=== PATIENT | female | born 1980 | race Two or more races ===

== ENCOUNTER 2020-06-11 09:43 | Outpatient (CLI) | payer OTHER | END 2020-06-11 10:26 | disposition home or self-care (01) | LOC: RX STUDY 09:43 → RAD 09:43 → RX STUDY 10:26 | PROVIDERS: ATTEND Obstetrics & Gynecology Reproductive Endocrinology | DX: N93.0 Postcoital and contact bleeding (principal) ==

== ENCOUNTER 2022-10-28 19:45 | Inpatient (IN) | payer OTHER ==
[~2022-10-28] VITALS: Ht 177.8 cm; Wt 66.2 kg
[2022-10-28] MEDS ORDERED: PRENATAL TABLE1 EAC1 PO (22:13)
== END 2022-10-31 09:54 | disposition home or self-care (01) | DRG 833 ==
LOC: NST 19:45 → LDR 21:56 → OB/GYN 10-30 15:20
PROVIDERS: ADMIT Obstetrics & Gynecology Maternal & Fetal Medicine; ATTEND Obstetrics & Gynecology Maternal & Fetal Medicine
PROC: 4A1HXCZ Monitoring of Products of Conception, Cardiac Rate, External Approach (ICD-10-PCS; principal; 2022-10-28)
PROC: BY4CZZZ Ultrasonography of Second Trimester, Single Fetus (ICD-10-PCS; 2022-10-29)
PROC: BU4CZZZ Ultrasonography of Uterus and Ovaries (ICD-10-PCS; 2022-10-29)
DX: O47.02 False labor before 37 completed weeks of gestation, second trimester (principal); O09.812 Supervision of pregnancy resulting from assisted reproductive technology, second trimester; O26.842 Uterine size-date discrepancy, second trimester; Z20.822 Contact with and (suspected) exposure to COVID-19; Z3A.24 24 weeks gestation of pregnancy

== ENCOUNTER 2022-11-07 09:54 | Outpatient (CLI) | payer OTHER ==
[~2022-11-07 09:54] MED LIST: PRENATAL TABLE1 EAC1 PO
== END 2022-11-07 10:53 | disposition home or self-care (01) ==
LOC: NST 09:54
PROVIDERS: ATTEND Obstetrics & Gynecology Maternal & Fetal Medicine
DX: Z34.82 Encounter for supervision of other normal pregnancy, second trimester (principal)

== ENCOUNTER 2022-12-23 13:04 | Outpatient (CLI) | payer OTHER | END 2022-12-23 14:52 | disposition home or self-care (01) | LOC: NST 13:04 | PROVIDERS: ATTEND Obstetrics & Gynecology Maternal & Fetal Medicine | DX: Z34.83 Encounter for supervision of other normal pregnancy, third trimester (principal) ==

== ENCOUNTER 2023-01-06 16:12 | Outpatient (CLI) | payer OTHER | END 2023-01-06 17:09 | disposition home or self-care (01) | LOC: NST 16:12 | PROVIDERS: ATTEND Obstetrics & Gynecology Maternal & Fetal Medicine | DX: Z34.83 Encounter for supervision of other normal pregnancy, third trimester (principal) ==

== ENCOUNTER 2023-02-09 14:00 | Inpatient (IN) | payer OTHER ==
[~2023-02-09] VITALS: Ht 177.8 cm; Wt 69.4 kg
== END 2023-02-20 13:43 | disposition home or self-care (01) | DRG 807 ==
LOC: LDR 02-17 14:00 → OB/GYN 02-17 17:11
PROVIDERS: ADMIT Obstetrics & Gynecology; ATTEND Obstetrics & Gynecology
PROC: 3E0P7VZ Introduction of Hormone into Female Reproductive, Via Natural or Artificial Opening (ICD-10-PCS; 2023-02-17)
PROC: 4A1HXCZ Monitoring of Products of Conception, Cardiac Rate, External Approach (ICD-10-PCS; 2023-02-17)
PROC: 10E0XZZ Delivery of Products of Conception, External Approach (ICD-10-PCS; principal; 2023-02-18)
PROC: 0KQM0ZZ Repair Perineum Muscle, Open Approach (ICD-10-PCS; 2023-02-18)
PROC: 3E033VJ Introduction of Other Hormone into Peripheral Vein, Percutaneous Approach (ICD-10-PCS; 2023-02-18)
DX: O70.1 Second degree perineal laceration during delivery (principal); Z37.0 Single live birth; Z20.822 Contact with and (suspected) exposure to COVID-19; Z3A.40 40 weeks gestation of pregnancy

== ENCOUNTER 2023-02-09 17:00 | Outpatient (CLI) | payer OTHER | END 2023-02-09 18:13 | disposition home or self-care (01) | LOC: NST 17:00 | PROVIDERS: ATTEND Obstetrics & Gynecology Gynecology | DX: Z34.83 Encounter for supervision of other normal pregnancy, third trimester (principal) ==

== ENCOUNTER 2023-02-16 13:22 | Outpatient (CLI) | payer OTHER | END 2023-02-16 15:22 | disposition home or self-care (01) | LOC: NST 13:22 | PROVIDERS: ATTEND Obstetrics & Gynecology | DX: Z34.83 Encounter for supervision of other normal pregnancy, third trimester (principal) ==